=== PATIENT | male | born 1995 | race Caucasian/White ===

== ENCOUNTER 2017-10-18 02:37 | Emergency (ER) | payer SELFPAY ==
[~2017-10-18] VITALS: Ht 165.1 cm; Wt 73.0 kg
[2017-10-18 02:40] VITALS: BP 137/78
== END 2017-10-18 03:00 | disposition left against medical advice (07) ==
LOC: ER 02:37
DX: F10.129 Alcohol abuse with intoxication, unspecified (principal); Z53.21 Procedure and treatment not carried out due to patient leaving prior to being seen by health care provider; Y90.9 Presence of alcohol in blood, level not specified